=== PATIENT | female | born 1995 | race Caucasian/White ===

== ENCOUNTER 2021-02-10 09:23 | Observation (INO) | payer OTHER ==
[~2021-02-10] VITALS: Ht 162.6 cm; Wt 114.7 kg
[2021-02-10] MEDS ORDERED: CITALOPRAM HBR10 MG PO (11:13)
[2021-02-10] MEDS ORDERED: VITAMIN D21250 MCG PO (11:13)
[2021-02-10] MEDS ORDERED: CAMILA0.35 MG PO (11:13)
[2021-02-10] MEDS ORDERED: OMEPRAZOLE20 MG PO (11:13)
[2021-02-10] MEDS ORDERED: EPINEPHRIN0.3 MG/0.3 IM (11:14)
--- NOTE | 2021-02-10 12:08 | NUR ---
REPORT RECIEVED FROM ER NURSE.
--- NOTE | 2021-02-10 13:00 | NUR ---
PT ARRIVED ON FLOOR AT 1230. PT AAOX4, PT DENIES PAIN AND N/V, ABD SOUNDS PRESENT BUT ABD IS TENDER TO TOUCH RUQ, LOBES ARE CLEAR, PT VOIDED 200 SINCE ARRIVAL. WILL CONTINUE TO MONITOR.
--- NOTE | 2021-02-10 14:51 | NUR ---
PT IN ROOM. NO NEW CONCERNS NOTED AT THIS TIME.
[2021-02-10] MEDS ORDERED: BUPROPION HCL75 MG PO (15:01)
[2021-02-10] MEDS ORDERED: CRANBERRY500 M3 PO (15:04)
[2021-02-10] MEDS ORDERED: ALDACTONE100 MG PO (15:04)
[2021-02-10] MEDS ORDERED: PEPCID AC20 MG PO (15:05)
[2021-02-10] MEDS ORDERED: PROBIOTIC1 EAC1 PO (15:05)
--- NOTE | 2021-02-10 15:06 | NUR ---
MED REC COMPLETE
--- NOTE | 2021-02-10 15:30 | NUR ---
PT AND SPOUSE WORK FOR [employer]. THEY L[place] IN [place], [place] [facility] [place]GENE IS HER LIFE PARTNER. PLANS ON SURGERY TOMORROW AND DISCHARGE TO HOME FOLLOWING SURGERY.
--- NOTE | 2021-02-10 17:40 | NUR ---
SINCE ARRIVAL ON FLOOR AT 1230 PT HAD NO ISSUES WITH PAIN AND N/V. ABD IS TENDER TO TOUCH RUQ AND UPPER MIDDLE. OTHERWISE ASSESSMENTS WERE BENIGN. V/S WDL, URINE OUTPUT WDL.
--- NOTE | 2021-02-10 17:55 | NUR ---
PATIENT AWAKE IN BED, FAMILY IN ROOM. VITALS AND I&OS CHARTED. FRESH ICE WATER AND BROTH PROVIDED,CALL LIGHT IN REACH
--- NOTE | 2021-02-10 19:25 | NUR ---
SHIFT REPORT RECEIVED FROM VISHNU MATHIS. PT RESTING IN BED, FAMILY IN ROOM. IV FLUIDS INFUSING PER ORDER. PT RUQ PAIN 10/23, DEINES NEED FOR INTERVENTION. CALL LIGHT IN REACH.
--- NOTE | 2021-02-10 20:05 | NUR ---
IN TO GET VITALS, ICE WATER AND APPLE JUICE PROVIDED, NO FURTHER NEEDS AT THIS TIME
--- NOTE | 2021-02-10 22:28 | NUR ---
ASSESSMENT COMPLETED. SCHEDULED MEDS PROVIDED. RUQ/BACK PAIN 01/21, PRN TYLENOL PROVIDED. GCS 15, A&O X4. LUNGS CLEAR, HEART TONES REGULAR. ABD SOFT, TENDER IN RUQ, BOWEL TONES ACTIVE, PT STATES NORMAL. CMS INTACT. IV WNL, CDI, FLUSHED WELL, IV FLUIDS INFUSING PER ORDER. NO OTHER NEEDS AT THIS TIME. CALL LIGHT IN REACH.
--- NOTE | 2021-02-11 | NUR ---
PT RESTING IN BED, EYES CLOSED. RR EVEN, UNLABORED. IV FLUIDS INFUSING PER ORDER. CALL LIGHT IN REACH.
--- NOTE | 2021-02-11 02:35 | NUR ---
ASSESSMENT, VS AND I&O COMPLETED. PT PAIN 3/10 IN RUQ, DENIES NEED FOR INTERVENTION. LUNGS CLEAR, HEART TONES REGULAR. ABD OBESE, TENDER IN RUQ, BOWEL TONES ACTIVE, PT STATES NORMAL. CMS INTACT. IV WNL, IV FLUIDS INFUSING PER ORDER. GCS 15, A&O X4. MOUTH SWABS PROVIDED. NO OTHER NEEDS AT THIS TIME. CALL LIGHT IN REACH.
--- NOTE | 2021-02-11 04:30 | NUR ---
PT RESTING IN BED, EYES CLOSED. RR EVEN, UNLABORED. CALL LIGHT IN REACH.
--- NOTE | 2021-02-11 05:58 | NUR ---
SCHEDULED MED PROVIDED. VS AND I&O COMPLETED. NO OTHER NEEDS AT THIS TIME. CALL LIGHT IN REACH.
--- NOTE | 2021-02-11 07:11 | CONS ---
[facility] [address], [place] [address] Signed DATE OF CONSULTATION: 02/10/2021 REFERRING PHYSICIAN: CHIEF COMPLAINT: Right upper quadrant abdominal pain. HISTORY OF PRESENT ILLNESS: Juan Jose is a 25-year-old female originally from [place], [place]. 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 While in college, she was suffering with obesity and acid reflux. The omeprazole has been helping in that regard. However, she awoke earlier this morning with significant right upper quadrant abdominal pain associated with nausea and vomiting. She finally decided to come to the emergency room for evaluation. She said it has been getting progressively worse over the last several weeks. In the emergency room, she was tender in the right upper quadrant with an elevated white blood cell count. Liver function tests were all negative. Beta-hCG is negative. The COVID test is negative. Urinalysis shows some ketones. An ultrasound was performed and her gallbladder wall is a bit long at 17.1 cm. It is a little distended, but not overly hydropic. There appears to be no stones or sludge. The gallbladder wall was not thick at 3 mm. The common bile duct is unremarkable at 4 mm. There appears to be a polyp about 7 mm inside the gallbladder. She did have a positive sonographic Varela sign. Consequently, I was asked to admit her as a general surgeon on-call. In the meantime, she has received Levaquin and Flagyl along with morphine. She said she is already feeling much better now that the pain med kicked in. She is here today with her boyfriend, Jovany. PAST MEDICAL HISTORY: Polycystic ovarian syndrome, gastroesophageal reflux disease, obesity and anxiety. PAST SURGICAL HISTORY: Includes a tonsillectomy, adenoidectomy and direct laryngoscopy and a barium swallow by an ENT physician while in college. SOCIAL HISTORY: She does not smoke or drink. She has her boyfriend Gene. He has children, but she does not. She works for our local [employer] counsel[employer]. Her mother is Anita Hardin at [phone]. Pamella Posada is her primary care provider. FAMILY HISTORY: Dad had diabetes. REVIEW OF SYSTEMS: Electronically Signed By: ROHAN NAVA MD 02/11/21 0711 PATIENT NAME: JUAN JOSE MELGAR CONSULTATION DATE OF : [birth year] REPORT #: [id number] PHYSICIAN: ROHAN NAVA MD PCP: PAMELLA POSADA PA-C REPORT IS CONFIDENTIAL AND NOT TO BE RELEASED WITHOUT AUTHORIZATION [facility] [address] [place] [id number] Signed Juan Jose had 10 systems reviewed. When she was heavier, there was some concern about being prediabetic. She has lost weight and seems to be doing better in that regard. ALLERGIES: Keflex and bee stings both cause anaphylaxis. MEDICATIONS: 1. Vitamin D. 2. Norethindrone. 3. Citalopram. 4. Omeprazole. 5. Epinephrine . PHYSICAL EXAMINATION: VITAL SIGNS: Her blood pressure is 127/103, heart rate 72, respiratory rate 18, temperature is 99.0. She is 100% on room air. She is 5 feet 4 inches at 114 kg. GENERAL: Juan Jose is a 25-year-old female lying supine in her ER bed. Her boyfriend Gene is in the room. She does not appear systemically ill or toxic. She is an excellent historian. LUNGS: Clear to auscultation bilaterally. HEART: Regular rate and rhythm without murmurs. ABDOMEN: Obese, but soft. She points to the right upper quadrant as the area of tenderness. She said it is gone now after the morphine. LABORATORY DATA: Her white blood cell count is 14.5, hemoglobin is 15. Electrolytes are unremarkable. Total bilirubin 0.5, AST 14, ALT 18, alkaline phosphatase 68, albumin is 4.8, lipase 16. Beta-hCG negative. Urinalysis positive for ketones. COVID test negative. RADIOGRAPHIC STUDIES: The ultrasound shows the gallbladder a bit long at 17.1 cm. It is not overly hydropic. There appears to be a polyp of about 7 mm inside. There are no stones or sludge. The gallbladder wall is not thick at 3 mm. The common bile duct is defined at 4 mm, but she did have a positive Varela's sign. ASSESSMENT AND PLAN: Juan Jose is a 25-year-old obese female, who presents with what looks like acalculous cholecystitis and dehydration. She is very clear that it is different than her acid reflux symptoms. These tend to bother her at night when she lies supine. I reviewed the above findings with Juan Jose and her boyfriend in detail. We have discussed the location and function of the gallbladder. We have also discussed laparoscopic versus open cholecystectomy. There is already surgery going now and a is pending and so we are going to admit her overnight for hydration and antibiotics. We will reassess the lab work in the morning and probably do her surgery sometime midday tomorrow after Electronically Signed By: ROHAN NAVA MD 02/11/21 0711 PATIENT NAME: JUAN JOSE MELGAR CONSULTATION DATE OF : [birth year] REPORT #: [id number] PHYSICIAN: ROHAN NAVA MD PCP: PAMELLA POSADA PA-C REPORT IS CONFIDENTIAL AND NOT TO BE RELEASED WITHOUT AUTHORIZATION [facility] [address], [place] [address] Signed some surgery I have scheduled in the morning. She understands there is risk to surgery including, but not limited to bleeding, infection, scarring, change in contour the skin, damage to bowel, damage to main bile duct, incisional hernias and other unforeseen comorbidities. She and her boyfriend have expressed understanding and agreed with the above plan/ Rohan Nava MD ALB/MODL /[id number] cc: Copies: ~ Electronically Signed By: ROHAN NAVA MD 02/11/21 0711 PATIENT NAME: JUAN JOSE MELGAR CONSULTATION DATE OF : [birth year] REPORT #: [id number] PHYSICIAN: ROHAN NAVA MD PCP: PAMELLA POSADA PA-C REPORT IS CONFIDENTIAL AND NOT TO BE RELEASED WITHOUT AUTHORIZATION
--- NOTE | 2021-02-11 08:18 | NUR ---
PE MD NAVA NO PRE-OP EKG AND CHEST X-RAY NEEDED.
--- NOTE | 2021-02-11 09:04 | NUR ---
PT IS DOING WELL THIS MORNING. PT DENIES N/V, PT STILL HAS RUQ AND MID ABDOMINAL TENDERNESS TO TOUCH. ABD SOUNDS ARE PRESENT. PT DOES HAVE A SLIGHTLY SWOLLEN RIGHT HAND. WILL CONTINUE TO MONITOR THAT. NO OTHER ISSUES NOTED WITH THIS ASSESSMENT.
--- NOTE | 2021-02-11 12:22 | NUR ---
PT DID NEED SOME PRIN IV PAIN MEDICATION. PT IS RESTING NOW. NO NEW CONCERNS NOTED. PT READY FOR OR.
--- NOTE | 2021-02-11 14:11 | NUR ---
02/11/21 1411 Mildred Walter TO PACU AFTER ABORTED CASE.
--- NOTE | 2021-02-11 14:35 | NUR ---
PT IS COMING BACK FROM PACU. NO SX DONE DUE TO EMERGENCY SX. WILL GO TO OR 02/12/21 AT 0900.
--- NOTE | 2021-02-11 15:44 | NUR ---
PT IS SLEEPING WITH 2L O2 NC ON. O2 SATS NOW 97%. RR WDL. WILL CONTINUE TO MONITOR.
--- NOTE | 2021-02-11 17:06 | NUR ---
PT IN BATHROOM AT THIS TIME AND ABLE TO WALK INDEPTENDENTLY. PT NOW ON RA TRIAL. RR WDL, NO PAIN OR N/V. NO NEW CONCERNS NOTED AT THIS TIME.
--- NOTE | 2021-02-11 17:36 | NUR ---
PT WENT TO OR AT 0100 OR SO. NO SX WAS DONE DUE TO AN EMERGENCY SX. PT CAME BACK TO FLOOR AT 1300. PT HAD EMESIS X1 UPON ARRIVAL HERE BUT SINCE, NO N/V AND PAIN HAVE BEEN EXPRESSED BY PT. PT WAS DROWSY AND SLEEPING WITH 2L O2 NC UTNIL 1705. PT THEN HAD TO VOID. SINCE, PT HAS BEEN ON ROOM AIR AND IS FULLY AWAKE EATING DINNER IN ROOM. V/S ARE ALL WLD. NO NEW ISSUES WERE NOTED. PT WILL GO BACK TO OR ON 02/12/21 AT 0845.
--- NOTE | 2021-02-11 19:31 | NUR ---
SHIFT REPORT RECEIVED FROM WILLIAM MATHIS. PT RESTING IN BED, EYES CLOSED. RR EVEN, UNLABORED. CALL LIGHT IN REACH.
--- NOTE | 2021-02-11 22:22 | NUR ---
ASSESSMENT COMPLETED. GCS 15, A&O X4. LUNGS CLEAR,HEART TONES REGULAR. ABD SOFT, TENDER IN RUQ, BOWEL TONES ACTIVE, PT STATES NORMAL. CMS INTACT. IV WNL, CDI, FLUSHED WELL. IV FLUIDS INFUSING PER ORDER. SCHEDULED MED PROVIDED. NO OTHER NEEDS. CALL LIGHT IN REACH.
--- NOTE | 2021-02-12 00:15 | NUR ---
PT RESTING IN BED, EYES CLOSED. RR EVEN, UNLABORED. CALL LIGHT IN REACH.
--- NOTE | 2021-02-12 01:38 | NUR ---
PT RESTING IN BED, EYES CLOSED. RR EVEN, UNLABORED. CALL LIGHT IN REACH.
--- NOTE | 2021-02-12 03:34 | NUR ---
PT RESTING IN BED, EYES CLOSED. RR EVEN, UNLABORED. CALL LIGHT IN REACH.
--- NOTE | 2021-02-12 04:50 | NUR ---
ASSESSMENT, VS AND I&O COMPLETED. GCS 15, A&O X4. LUNGS CLEAR, HEART TONES REGULAR. ABD SOFT, TENDER IN RUQ, BOWEL TONES ACTIVE. CMS INTACT. IV WNL, IV FLUIDS INFUSING PER ORDER. MOUTH SWABS PROVIDED. NO OTHER NEEDS. CALL LIGHT IN REACH.
--- NOTE | 2021-02-12 06:16 | NUR ---
SCHEDULED MED PROVIDED. IV WNL. PT DENIES PAIN AT THIS TIME. CALL LIGHT IN REACH.
--- NOTE | 2021-02-12 07:13 | NUR ---
PT APPEARS TO BE SLEEPING SOUNDLY AT TIME OF SHIFT EXCHANGE, LEFT UNDISTURBED. REPORT RECEIVED.
--- NOTE | 2021-02-12 07:23 | NUR ---
PT PRE SURGICAL WIPE DOWN COMPLETE AND NEW BED LINENS IN PLACE, NO FURTHER NEEDS AT THIS TIME
--- NOTE | 2021-02-12 07:35 | NUR ---
PT AWAKE, MOTHER PRESENT IN THE ROOM. PRE-OP TEACHING REVIEWED PT VERBALIZES UNDERSTANDING DENIES QUESTIONS. AGREES SHE IS COMFORTABLE RIGHT NOW
--- NOTE | 2021-02-12 08:14 | NUR ---
DR NAVA IN TO SEE PT ALL QUESTIONS ANSWERED
--- NOTE | 2021-02-12 08:49 | NUR ---
PT TO O/R VIA STRETCHER
--- NOTE | 2021-02-12 10:48 | NUR ---
02/12/21 1048 Amanda Sandoval 1036: PT ARRIVES TO PACU ON 6L O2 VIA MASK WITH NATURAL AIRWAY. PT REACTIVE TO VERBAL STIMULI. PT ENC TO TAKE DEEP BREATHS. 1043: PT OPENS EYES AND IS ABLE TO STATE NAME. PT STATES "IT HURTS" AND IS ABLE TO RATE PAIN 6/10; SEE EMAR FOR MEDICATION ADMIN. 1047: PT PROVIDED PILLOW TO BRACE ABD FOR CDB.
--- NOTE | 2021-02-12 11:59 | NUR ---
PT BACK FROM O/R AWAKE AND C/O PAIN. ASSISTED TO BED, VITALS TAKEN AND PAIN MEDS ADMINISTERED. FRESH H20 AT BEDSIDE. MOTHER IS PRESENT IN THE ROOM. PT AGREES PAIN MED WAS EFFECTIVE AND "IS HELPING A LOT" SNACKS AT BEDSIDE. PT RESTING FOR A TIME NOTIFIED HER AFTER A GOOD REST AND PAIN IN CONTROL SHE WILL BE UP OUT OF BED. AGREES TO CALL FOR ANY NEEDS OR TO GET UP
--- NOTE | 2021-02-12 12:26 | NUR ---
PT RESTING SOUNDLY AWAKENS TO VOICE AGREES SHE IS COMFORTABLE. PULSE OX IN PLACE SATS AND HR IN NORMAL RANGE. MOTHER CONTINUES AT BEDSIDE
--- NOTE | 2021-02-12 12:54 | NUR ---
PT UP AMBULATES TO THE TOILET ABLE TO VOID WITHOUT DIFFICULTY. RETURNS TO BED EATING SNACKS AND DRINKING H20 SPEAKING WITH MOTHER. CONTINUES TO HAVE SOME PAIN BUT "NOT BAD" PERCOCET GIVEN
--- NOTE | 2021-02-12 14:08 | NUR ---
PT TOLERATES A LIGHT LUNCH. AGREES PAIN IS WELL CONTROLLED. MOTHER CONTINUES PRESENT AT BEDSIDE.
--- NOTE | 2021-02-12 15:07 | NUR ---
pt up to the toilet for the 4th time, agrees it is much easier now than at first. pt passing clear yellow urine. returns to bed scd's in place. visitor in the room. pt states she is ready to go home now
--- NOTE | 2021-02-12 15:48 | NUR ---
PT HAS BEEN ABLE TO VOID SEVERAL TIMES, PAIN IS WELL CONTROLLED, AND SHE HAS BEEN ABLT TO EAT AND DRINK WITH NO PAIN, NAUSEA, OR DISCOMFORTS. STATES SHE IS READY TO GO HOME AND PLANS TO JUST TAKE IT EASY THE REST OF THE DAY. PT VERBALIZES UNDERSTANDING OF DC INSTRUCTIONS AND WILL CALL FOR F/U APPT TOMORROW WHEN MD OFFICE IS OPEN. PT GOING HOME WITH HER BOYFRIEND AND MOTHER
--- NOTE | 2021-02-13 06:16 | OR ---
[facility] [address], [place] [address] Signed DATE OF OPERATION: 02/12/2021 SURGEON: Rohan Nava MD PREOPERATIVE DIAGNOSIS: [id number] acalculous cholecystitis. POSTOPERATIVE DIAGNOSES: 1. Xziyz-im-mgnuzfv calculous x1 cholecystitis. 2. Mildly dilated left hepatic duct versus choledochal cyst. PROCEDURE: Laparoscopic cholecystectomy with intraoperative cholangiogram. ESTIMATED BLOOD LOSS: Minimal. FINDINGS: Juan Jose indeed had a long mildly dilated gallbladder. The gallbladder wall was edematous. The color was dull. She had one 7 mm stone nursing home up the gallbladder rather than the ultrasound detected polyp. The intraoperative cholangiogram showed the common bile duct and the left hepatic duct to be a little more dilated than usual. This is in contrast to the ultrasound findings. Her gallbladder was far up inside the liver and we found what we thought was the left hepatic duct coming out and down pass the cystic duct. Of course, it always brings up the concern of a choledochal cyst. We might consider an MRCP after she heals up from the surgery to more clearly define that anatomy. INDICATIONS: Juan Jose is a 25-year-old female at 5 feet 4 inches, 114 kg. She has had trouble with right upper quadrant abdominal pain and nausea and vomiting. She finally came to the emergency room for evaluation. The white count was elevated, but the liver function tests were fine. The ultrasound showed what may be a 7 mm polyp in the fundus of the gallbladder. The gallbladder was a bit long at 17.1 cm. No gallbladder wall-thickening. No pericholecystic fluid. Common bile duct seemed to be about 4 mm. She did have a positive Varela's sign. I have been asked to admit her as the surgeon on-call for concerns of acalculous cholecystitis. She was admitted and started on Levaquin and Flagyl due to her significant allergy to Keflex. We actually had her in the operating room yesterday asleep with endotracheal tube. An emergent was called, so we stopped and we had to wake Juan Jose up in order to free our staff for the Electronically Signed By: ROHAN NAVA MD 02/13/21 0616 PATIENT NAME: JUAN JOSE MELGAR OPERATIVE REPORT DATE OF : [birth year] REPORT #: [id number] PHYSICIAN: ROHAN NAVA MD PCP: PAMELLA MARIE PA-C REPORT IS CONFIDENTIAL AND NOT TO BE RELEASED WITHOUT AUTHORIZATION [facility] [address] [place] [id number] Signed emergent . We therefore kept her overnight yesterday and then this morning rescheduled her surgery. I had called her mom and reviewed the situation. We went over again with Juan Jose this morning and along with her mother. In the meantime, I have discussed with them the location and function of the gallbladder. We have discussed laparoscopic versus open cholecystectomy. They understand the expected intraop and postop course. There is risk of surgery including, but not limited to bleeding, infection, scarring, change in contour of the skin, damage to bowel, damage to main bile duct, incisional hernias, and other unforeseen comorbidities. They had expressed understanding and wished to proceed. PROCEDURE NOTE: Juan Jose was taken down to our operating room and placed in the supine position under general endotracheal tube anesthesia. She was already on preoperative antibiotics along with subcutaneous heparin. SCDs were utilized. She was then prepped and draped in the usual sterile fashion. We placed our trocars in her usual positions under direct visualization of the camera without difficulty. We could immediately see she has a very long dilated fairly large gallbladder. We could see that its way up underneath her liver as well. The collar was dull. We could see the gallbladder wall was taking on fluid. We took pictures throughout for photodocumentation. We elevated the gallbladder in the right upper quadrant and we began our dissection of the triangle of Calot very carefully and bluntly with our [place] dissector. We freed up the cystic duct and we inserted the intraoperative cholangiocatheter. Intraoperative cholangiogram was then performed. We could see the cystic duct coming over to the main bile duct. We did not see any filling defects. The common bile duct and the left hepatic duct were bit dilated, but they tapered nicely through the ampulla of Vater and into the duodenum. We secured the cystic duct stump with 3 sequential clips. We then very carefully assessed the triangle of Calot once again. We found the cystic artery up next to the gallbladder wall and it was clipped distally and proximally and divided sharply with the scissors. We then very carefully dissected high up on the gallbladder wall and found what probably is her left hepatic duct coming up to the liver. Again, her gallbladder was way up inside the liver. Of course, we left that intact. It would be consistent with what we saw on the intraoperative cholangiogram. However, the idea of a choledochal cyst of course is raised. The gallbladder was slowly and carefully removed from the gallbladder fossa and placed into an EndoCatch bag. The right upper quadrant was irrigated and suctioned out until clear. We then used our laparoscopic suturing device to pass 0-Vicryl suture on either side of the fascia of the subxiphoid trocar site. This was tied down to close this fascia primarily. After this, the gas was allowed to escape and all the trocars were removed. We had found that she had just a tiny epigastric hernia above the umbilicus. We used that to place the Maribeth trocar. We closed that very readily with [id number] and simple 0-Vicryl sutures. Local anesthetic was then injected into all trocar sites. Each trocar site was irrigated and suctioned out until clear. The skin and dermis of each trocar site was closed with interrupted 3-0 Electronically Signed By: ROHAN NAVA MD 02/13/21 0616 PATIENT NAME: JUAN JOSE MELGAR OPERATIVE REPORT DATE OF : [birth year] REPORT #: [id number] PHYSICIAN: ROHAN NAVA MD PCP: PAMELLA MARIE PA-C REPORT IS CONFIDENTIAL AND NOT TO BE RELEASED WITHOUT AUTHORIZATION [facility] [address] [place] [id number] Signed subcuticular Monocryl sutures. We used 0.5-inch Steri-Strips on the subxiphoid trocar site as well as the 2 right subcostal trocar sites. Dry gauze and tape were then applied to all incisions. We also placed half-inch Steri-Strips on the site for intraoperative cholangiocatheter. After this, Juan Jose was awakened from her anesthesia, extubated in the OR, and taken to recovery room in stable condition. Rohan Nava MD ALB/MODL /[id number] cc: Pamella Nava MD Chart Filed Incomplete Copies: ROHAN NAVA MD CHART FILED INCOMPLETE ~ Electronically Signed By: ORHAN NAVA MD 02/13/21 0616 PATIENT NAME: JUAN JOSE MELGAR OPERATIVE REPORT DATE OF : [birth year] REPORT #: [id number] PHYSICIAN: ROHAN NAVA MD PCP: PAMELLA MARIE PA-C REPORT IS CONFIDENTIAL AND NOT TO BE RELEASED WITHOUT AUTHORIZATION
--- NOTE | 2021-02-15 14:33 | PATH ---
[facility] [address] [place], [place] [address] Signed SPECIMEN(S): A GALLBLADDER AND STONES SPECIMEN SOURCE: A. GALLBLADDER AND STONES CLINICAL HISTORY: Acute on chronic cholecystitis FINAL PATHOLOGIC DIAGNOSIS: Gallbladder and stones: - Acute and chronic calculus cholecystitis. - Focal mild mucosal necrosis. JVR:cml:C2NR MICROSCOPIC EXAMINATION: Histologic sections of all submitted blocks are examined by light microscopy. These findings, together with the gross examination, support the pathologic diagnosis. GROSS DESCRIPTION: The specimen, labeled "SH, gallbladder," is received in formalin and consists of: Specimen: Previously opened gallbladder. Dimensions: 12.5 cm in length and 4.5 cm in inner circumference. Serosa: Violaceous and smooth. Cystic Duct: Unobstructed. Calculi: One green gallstone within the container that measures 1.2 cm in greatest dimension. Mucosa: Florin-abdullahi, velvety and partially covered with yellow-abdullahi, adherent material. Wall thickness: 0.4 cm. Lymph node: No pericystic lymph nodes are grossly identified. Additional: None. Body Make Up Artist sections are submitted in cassette (A1). JS (under the direct supervision of a pathologist) The Gross Description was prepared using a voice recognition system. The report was reviewed for accuracy; however, sound-alike word errors, addition and/or deletions may occur. If there is any question about this report, please contact Client Services. PERFORMING LABORATORY: PATIENT NAME: JUAN JOSE MELGAR PATHOLOGY DATE OF : [birth year] REPORT #: [id number] PHYSICIAN: JASWINDER DALY PCP: ИРИНА MARIE PA-C REPORT IS CONFIDENTIAL AND NOT TO BE RELEASED WITHOUT AUTHORIZATION [address] [place] [address] Signed The technical component was performed by [employer], [address] [place] [address] (Camp Director: Renee Raymond MD; CLIA# [id number]). Professional interpretation was performed [place] [address]. Diagnostician: Antonio Silva MD Pathologist Electronically Signed 02/15/2021 Copies: ~ PATIENT NAME: JUAN JOSE MELGAR PATHOLOGY DATE OF : [birth year] REPORT #: [id number] PHYSICIAN: JASWINDER DALY PCP: ИРИНА MARIE PA-C REPORT IS CONFIDENTIAL AND NOT TO BE RELEASED WITHOUT AUTHORIZATION
== END 2021-02-12 15:55 | disposition home or self-care (01) ==
LOC: ED 09:23 → MS 09:24 → ED 10:58 → MS 10:58
PROVIDERS: ADMIT Colon & Rectal Surgery; ATTEND Colon & Rectal Surgery
PROC: BF03YZZ Plain Radiography of Gallbladder and Bile Ducts using Other Contrast (ICD-10-PCS; 2021-02-12)
PROC: 0FT44ZZ Resection of Gallbladder, Percutaneous Endoscopic Approach (ICD-10-PCS; principal; 2021-02-12 09:00)
DX: K80.12 Calculus of gallbladder with acute and chronic cholecystitis without obstruction (principal); E86.0 Dehydration; K43.9 Ventral hernia without obstruction or gangrene; K21.9 Gastro-esophageal reflux disease without esophagitis; E66.9 Obesity, unspecified; Z20.822 Contact with and (suspected) exposure to COVID-19; Z68.41 Body mass index [BMI] 40.0-44.9, adult
CPT/HCPCS: 00790; 74300; 76705; 80053; 81001; 83690; 83735; 84100; 84703; 85025; 96361; 96374; 96375; 99285-25; C9113; C9803; J0131; J0330; J1100; J1170; J1790; J1885; J1956; J2001; J2270; J2405; J2704; J3010; J3475; J7030; J7121; Q9967; U0003

== ENCOUNTER 2023-09-30 16:26 | Inpatient (IN) | payer OTHER ==
[~2023-09-30] VITALS: Ht 160 cm; Wt 100.2 kg
--- NOTE | ~2023-09-30 | OR ---
[facility] [address] [place], [place] [address] Draft DATE OF OPERATION: 09/30/2023 SURGEON: Anabell Villegas DO PREOPERATIVE DIAGNOSES: 1. Intrauterine at 39 weeks and 4 days gestation. 2. Non-reassuring heart tracing. 3. History of bariatric surgery. POSTOPERATIVE DIAGNOSES: 1. Intrauterine at 39 weeks and 4 days gestation. 2. Non-reassuring heart tracing. 3. History of bariatric surgery. 4. True knot of the umbilical cord. PROCEDURE PERFORMED: Primary low transverse delivery. GREENS TIER: Lori Khanna MD ANESTHESIA: Epidural. COMPLICATIONS: None. DRAINS: Lyon to gravity. EBL: 700 mL. FINDINGS: Delivery of a viable male in the LOT position via primary low transverse delivery. Clear amniotic fluid and no nuchal cord identified. True knot noted that was quite tight. Apgars of 8 and 9 and the weighed 7 pounds 3 ounces. Right extension of the hysterotomy repaired without difficulty. Normal tubes and ovaries. Small subserosal fibroid approximately 3 cm of diameter at the fundus posteriorly. PATIENT NAME: JUAN JOSE FAUSTIN OPERATIVE REPORT DATE OF : [birth year] REPORT #: [id number] PHYSICIAN: ANABELL VILLEGAS) PCP: PARRISH WOOD PA-C REPORT IS CONFIDENTIAL AND NOT TO BE RELEASED WITHOUT AUTHORIZATION [facility] [address] [place], [place] [address] Draft INDICATIONS: Ms. Faustin is a very pleasant 28-year-old female who presented at 39 weeks gestation for a routine OB visit. She was noted to be 4 cm dilated, 100% effaced, and had elevated diastolic blood pressures. She was sent to Labor and Delivery for admission for labor and further evaluation. Blood pressures were generally normal throughout the labor and she had no sustained elevated blood pressures and preeclampsia labs were normal. She became uncomfortable. An epidural was placed. She had a prolonged deceleration that improved with intrauterine resuscitation. The patient made slow change to 7 cm and developed recurrent late decelerations. The patient then developed tachycardia with recurrent lates and no cervical change was noted. Decision was made to offer primary low-transverse delivery per [facility]'s recommendations for management of category 2 tracing. Risks, benefits, and alternatives discussed in detail with the patient. The patient understands and wished to proceed with the procedure. TECHNIQUE: The patient was taken to the operating room where a time-out was performed to confirm the correct patient, correct procedure. Epidural was bolused and a Lyon catheter had previously been placed. The patient was prepped and draped in the supine position with a bump under the right hip. The patient received clindamycin 900 mg, gentamicin 5 mg/kg, and azithromycin 500 mg preoperatively per SCIP protocol. No heparin was indicated. Once abdomen was noted to be hemostatic, a Pfannenstiel skin incision was made approximately 3 cm above the pubic symphysis. Incision was carried down to the fascia, which was nicked in the midline and fascial incision was extended bilaterally using sharp dissection. The fascia was grasped with Chad's, elevated, and the underlying rectus divided off bluntly sharply. Rectus was divided in the midline without difficulty and the peritoneum was entered bluntly. Peritoneal incision was extended bilaterally using blunt dissection. An El self retractor was placed. Lower uterine segment was identified and hysterotomy was performed using surgical scalpel. Hysterotomy was extended bilaterally using blunt dissection and clear fluid was noted. was noted to be in the LOT position and was easily delivered through the hysterotomy with assistance of fundal pressure. Clear fluid and no nuchal cord was identified. A very tight true knot was noted in the umbilical cord. Cord was doubly clamped, cut, and handed to the waiting pediatric team for further care. Cord gases were obtained and cord blood was obtained for routine analysis. The placenta was expressed, intact with a centrally inserted three-vessel cord. The uterus was cleared of any remaining products of conception or clot. Hysterotomy was then cleared in two layers of 0 Monocryl. The first being a running locked layer and the second being a running imbricated stitch in the vertical manner. Then extension of the hysterotomy was noted on the right side and this was repaired without difficulty. Small amount of oozing was noted in the hysterotomy extension repair and this was made hemostatic with a [id number] suture. The pelvis was irrigated and found to be hemostatic and El PATIENT NAME: JUAN JOSE FAUSTIN OPERATIVE REPORT DATE OF : [birth year] REPORT #: [id number] PHYSICIAN: ANABELL VILLEGAS (ESMER) DO PCP: PARRISH WOOD PA-C REPORT IS CONFIDENTIAL AND NOT TO BE RELEASED WITHOUT AUTHORIZATION [facility] [address] [place] [id number] Draft retractor was removed. Peritoneum was reapproximated using 2-0 Vicryl in a running nonlocked manner. Rectus was irrigated made hemostatic with judicious use of Bovie electrocautery. The rectus was then divided in three loose interrupted sutures of 0 Vicryl. Fascia was reapproximated using 0 Vicryl in a running locked manner. Subcu was made hemostatic with judicious use of Bovie electrocautery. 3-0 Vicryl was used to close the subcu and the skin was reapproximated with surgical jose daniel. The uterus was Crede'd for scant amount of blood. The patient was taken to PACU in good, stable condition. Sponge, needle, and instrument counts correct x2 at the end of the procedure. Dr. Khanna was present and participated in all portions of procedure. DO ALDO Hess/ALVARO /[id number] Copies: ~ PATIENT NAME: JUAN JOSE FAUSTIN OPERATIVE REPORT DATE OF : [birth year] REPORT #: [id number] PHYSICIAN: ANABELL VILLEGAS DO (JD) PCP: PARRISH WOOD PA-C REPORT IS CONFIDENTIAL AND NOT TO BE RELEASED WITHOUT AUTHORIZATION
[~2023-09-30 16:26] MED LIST: ALDACTONE100 MG PO; BUPROPION HCL75 MG PO; CAMILA0.35 MG PO; CITALOPRAM HBR10 MG PO; CRANBERRY500 M3 PO; EPINEPHRIN0.3 MG/0.3 IM; OMEPRAZOLE20 MG PO; PEPCID AC20 MG PO; PROBIOTIC1 EAC1 PO; VITAMIN D21250 MCG PO
[2023-09-30 16:53] LABS: CREATININE, RANDOM URINE 103.02 mg/dL (NOT ESTABLISHED); PROTEIN, RANDOM URINE 22 mg/dL (NOT ESTABLISHED)
[2023-09-30 17:02] LABS: HEMATOCRIT 35.4 % (35.0-50.0); HEMOGLOBIN 11.4 g/dL (12.0-18.0); MCH 30.1 (27-36); MCHC 32.2 g/dl (30-36); MCV 93.5 fl (81-99); RBC 3.78 M/ul (4.3-5.7); RDW 13.7 (10.5-15.0)
[2023-09-30 17:20] LABS: ALBUMIN/GLOBULIN RATIO 0.71 (1.1-2.4); ANION GAP 17.7 (7-21); BILIRUBIN, TOTAL 0.5 ng/dL (0.2-1.0); BUN/CREATININE RATIO 10.81 (6.0-28.6); CALCIUM 9.1 mg/dL (8.5-10.1); CREATININE, SERUM 0.74 mg/dL (0.55-1.02); POTASSIUM 3.7 mmol/L (3.5-5.1); PROTEIN, TOTAL 7.2 g/dL (6.4-8.2)
[2023-09-30 17:28] VITALS: BP 155/88
[2023-09-30 17:29] VITALS: BP 155/88
[2023-09-30 17:30] LABS: AMPHETAMINES, URINE NEGATIVE (NEGATIVE); BARBITURATES, URINE NEGATIVE (NEGATIVE); BENZODIAZEPINE, URINE NEGATIVE (NEGATIVE); BUPRENORPHINE, URINE NEGATIVE (NEGATIVE); CANNABINOID, URINE NEGATIVE (NEGATIVE); COCAINE, URINE NEGATIVE (NEGATIVE); ECSTASY, URINE NEGATIVE (NEGATIVE); FENTANYL, URINE NEGATIVE (NEGATIVE); METHADONE, URINE NEGATIVE (NEGATIVE); OPIATES, URINE NEGATIVE (NEGATIVE); OXYCODONE, URINE NEGATIVE (NEGATIVE); PHENCYCLIDINE, URINE NEGATIVE (NEGATIVE)
[2023-09-30 17:40] LABS: ABO O; ANTIBODY SCREEN NEGATIVE; RH POSITIVE
--- NOTE | 2023-09-30 18:21 | PR ---
[facility] [address] [place], [place] [address] Signed Progress Notes IP Datetime Report Generated by CPN: 09/30/2023 18:21 PROGRESS NOTES: [id number] Impression: Normal Progression of Labor; Reassuring Heart Rate Procedures: Artificial ROM; Intrauterine Pressure Catheter; Scalp Electrode; Sterile Vag Exam Plan: Continue Present Management Informed Consent Obtain: Vaginal Delivery VITAL SIGNS: [id number] Vital Signs: Reviewed VS Notable Details: No sustained elevated BPs; no OWENS, RUQ pain, visual changes EXAM: [id number] Dilatation: 6.0 Station: -2 Contractions: Difficult to monitor w/ external tocometer MEMBRANES: [id number] Comments: Called to pt's room for prolonged deceleration. Pt w/ symptomatic hypotension w/ systolic BPs in the 90's, lightheadedness, and N/V as well as prolonged deceleration. IVF and ephedrine ordered per anesthesia. AROM performed with placement of IUPC and FSE after obtaining informed consent. Large amount of clear fluid noted. FHT reassuring. Elevated BP noted w/ administration of ephedrine. Mother and baby now improved and will continue watching closely. FETUS A: [id number] FHR Baseline: 150 Variability: Moderate 6-25bpm Accelerations: 15X15 Decelerations: Prolonged FHR Category: Category II Presentation: Vertex Comments on Fetus A: No evidence of metabolic acidosis FETUS B: [id number] Signing Physician: Anabell Villegas DO Copies: ~ *Electronically Signed* 09/30/231820 ANABELL VILLEGAS (ESMER) DO PATIENT NAME: JUAN JOSE OLMSTEAD PROGRESS NOTE DATE OF : [birth year] PHYSICIAN: ANABELL VILLEGAS (JD) DO RPT #: [id number] REPORT IS CONFIDENTIAL AND NOT TO BE RELEASED WITHOUT AUTHORIZATION
--- NOTE | 2023-09-30 20:04 | PR ---
[facility] [address] [place], [place] [address] Signed Progress Notes IP Datetime Report Generated by CPN: 09/30/2023 20:04 PROGRESS NOTES: [id number] Impression: Normal Progression of Labor; Reassuring Heart Rate Procedures: Sterile Vag Exam Plan: Continue Present Management; Anticipate Vaginal Delivery Informed Consent Obtain: Vaginal Delivery VITAL SIGNS: [id number] Vital Signs: Reviewed VS Notable Details: No sustained elevated BPs; no OWENS, RUQ pain, visual changes EXAM: [id number] Dilatation: 7.0 Effacement: 100 Station: -2 Contractions: q 2 min MEMBRANES: [id number] Comments: Pt seen and examined. Doing well. Comfortable w/ epidural. Mild tachycardia; afebrile. Will monitor. All questions answered. FETUS A: [id number] FHR Baseline: 150 Variability: Moderate 6-25bpm Accelerations: 15X15 Decelerations: None FHR Category: Category I Presentation: Vertex Comments on Fetus A: No evidence of metabolic acidosis FETUS B: [id number] Signing Physician: Anabell Villegas DO Copies: ~ *Electronically Signed* 09/30/23 ANABELL TINOCO (ESMER) DO PATIENT NAME: JUAN JOSE OLMSTEAD PROGRESS NOTE DATE OF : [birth year] PHYSICIAN: ANABELL VILLEGAS (JD) DO RPT #: [id number] REPORT IS CONFIDENTIAL AND NOT TO BE RELEASED WITHOUT AUTHORIZATION
--- NOTE | 2023-09-30 21:45 | PR ---
[facility] [address] [place], [place] [address] Signed Progress Notes IP Datetime Report Generated by CPN: 09/30/2023 21:45 PROGRESS NOTES: [id number] Impression: Normal Progression of Labor; Reassuring Heart Rate Procedures: Intrauterine Pressure Catheter; Sterile Vag Exam Plan: Augmentation Informed Consent Obtain: Vaginal Delivery Other Informed Consents: Augmentation w/ pitocin VITAL SIGNS: [id number] Vital Signs: Reviewed VS Notable Details: No sustained elevated BPs; no OWENS, RUQ pain, visual changes EXAM: [id number] Dilatation: 7.0 Effacement: 100 Station: -2 Contractions: q 3-4 min MEMBRANES: [id number] Comments: Pt seen and examined. Doing well. Comfortable w/ contractions. No cervical change since last check FHT reassuring. Discussed placement of IUPC and pt agrees. IUPC placed. Will monitor adequacy of contractions and consider augmentation w/ pitocin if indicated. All questions answered FETUS A: [id number] FHR Baseline: 150 Variability: Moderate 6-25bpm Accelerations: 15X15 Decelerations: None FHR Category: Category I Presentation: Vertex Comments on Fetus A: No evidence of metabolic acidosis FETUS B: [id number] Signing Physician: Anabell Villegas DO Copies: ~ *Electronically Signed* 09/30/23 1734 ANABELL VILLEGAS (ESMER) DO PATIENT NAME: JUAN JOSE OLMSTEAD PROGRESS NOTE DATE OF : [birth year] PHYSICIAN: ANABELL VILLEGAS (JD) DO RPT #: [id number] REPORT IS CONFIDENTIAL AND NOT TO BE RELEASED WITHOUT AUTHORIZATION
--- NOTE | 2023-09-30 22:29 | PR ---
[facility] [address] [place], [place] [address] Signed Progress Notes IP Datetime Report Generated by CPN: 09/30/2023 22:29 PROGRESS NOTES: [id number] Impression: Normal Progression of Labor; Reassuring Heart Rate Other Impressions: Slow progression, inadequate CTXs, Cat 2 tracing Procedures: Intrauterine Pressure Catheter; Sterile Vag Exam Plan: Augmentation Other Plans: Intrauterine rescussitation Informed Consent Obtain: Vaginal Delivery Other Informed Consents: Augmentation w/ pitocin VITAL SIGNS: [id number] Vital Signs: Reviewed VS Notable Details: No sustained elevated BPs; no OWENS, RUQ pain, visual changes EXAM: [id number] Dilatation: 7.0 Effacement: 100 Station: -2 Contractions: q 3 min MEMBRANES: [id number] Comments: Pt seen and evaluated. Recurrent decelerations, minimal variability, and tachycardia noted. Afebrile. Reviewed somewhat soft pressures and will add ephedrine 10mg IV now to intrauterine rescussitation. Reviewed possible if FHT not improved. Reviewed intrauterine rescussitative efforts incluiding IV fluid bolus and maternal repositioning. All questions answered FETUS A: [id number] FHR Baseline: 150 Variability: Minimal - >Undetectable to <=5bpm Accelerations: 15X15 Decelerations: Late FHR Category: Category II Presentation: Vertex Comments on Fetus A: No evidence of metabolic acidosis FETUS B: [id number] Signing Physician: Anabell Villegas DO *Electronically Signed* 09/30/23 2695 ANABELL VILLEGAS (ESMER) DO PATIENT NAME: JUAN JOSE OLMSTEAD PROGRESS NOTE DATE OF : [birth year] PHYSICIAN: ANABELL VILLEGAS (JD) DO RPT #: [id number] REPORT IS CONFIDENTIAL AND NOT TO BE RELEASED WITHOUT AUTHORIZATION
--- NOTE | 2023-09-30 23:11 | PR ---
[facility] [address] [place], [place] [address] Signed Progress Notes IP Datetime Report Generated by CHESLEA: 09/30/2023 23:11 PROGRESS NOTES: [id number] Impression: Arrest of Dilatation/Descent; Non-reassuring Heart Rate Other Impressions: Slow progression, inadequate CTXs, Cat 2 tracing Procedures: Sterile Vag Exam Plan: Deliver- Section Other Plans: Intrauterine rescussitation Informed Consent Obtain: Section Delivery Other Informed Consents: Augmentation w/ pitocin VITAL SIGNS: [id number] Vital Signs: Reviewed VS Notable Details: No sustained elevated BPs; no OWENS, RUQ pain, visual changes EXAM: [id number] Dilatation: 7.0 Effacement: 100 Station: -2 Contractions: q 3-4 min MEMBRANES: [id number] Comments: Pt seen and examined. Sustained tachycardia (afebrile) w/ recurrent late decelerations noted despite intrauterine rescussitative efforts. Recommended primary low transverse delivery. Review FHT and contractions. Discussed primary C/S in detail including risks / benefits / alternatives. All questions answered to the best of my ability and to pt's satisfaction. Pt and understand and agree to plan of primary C/S. Consents signed, OR crew notified and en route, and orders placed. FETUS A: [id number] FHR Baseline: 150 Variability: Minimal - >Undetectable to <=5bpm Accelerations: 15X15 Decelerations: Late FHR Category: Category II Presentation: Vertex Comments on Fetus A: No evidence of metabolic acidosis FETUS B: [id number] Signing Physician: Anabell Villegas DO *Electronically Signed* 09/30/23 2311 ANABELL VILLEGAS) DO PATIENT NAME: JUAN JOSE OLMSTEAD PROGRESS NOTE DATE OF : [birth year] PHYSICIAN: ANABELL VILLEGAS DO (JD) RPT #: [id number] REPORT IS CONFIDENTIAL AND NOT TO BE RELEASED WITHOUT AUTHORIZATION
[2023-10-01 00:58] VITALS: BP 134/75
--- NOTE | 2023-10-01 01:23 | NUR ---
10/01/23 0123 Alicia Mijares 0039- PT BROUGHT TO ROOM 104 IN [facility] ON BED, SUPINE POSITION. LR WITH 30 UNITS OF PITOCIN INFUSING TO RFA 18G IV. PT IS AWAKE, ANSWERS QUESTIONS APPROPRIATE BUT DROWSY. PT REPORTS TINGLING IN FEET AND CAN MOVE TOES. DENIES NAUSEA AT THIS TIME. 0050- PT HEAD ELEVATED TO SEMI BENITES, BABY AT BREAST. PT REPORTS NO CHANGE IN PAIN, DENIES NAUSEA. 0110- REPORT TO DANNY MATHIS, PT ALERT AND ORIENTED. BABY REMAINS AT BREAST. LR WITH 30 UNITS OF PITOCIN CONTINUES TO INFUSE. CARE OF PT TURNED OVER AT THIS TIME.
--- NOTE | 2023-10-01 11:37 | NUR ---
[facility] ROUNDS. 15 MINUTES. SEVERAL VISITORS IN ROOM. PT AND FAMILY EXPRESSED RUFINO AND SATISFACTION. GRANDMOTHER EXPRESSED HAPPINESS. NORMALIZED PT EXPERIENCE. PROVIDED SILENT PRAYER.
--- NOTE | 2023-10-01 18:13 | PR ---
[facility] [address] [facility] [place], [place] [address] Signed PP Progress Notes Datetime Report Generated by CPN: 10/01/2023 18:13 SUBJECTIVE: [id number] Pain: Within Normal Limits Nausea/Vomiting: Denies Flatus: Yes Bowel Movement: No Vital Signs: [id number] Vital Signs: Reviewed; Within Normal Limits Cardiovascular: Normal Respiratory: Normal Abdomen/Uterus: Normal Lochia: Normal CVA Tenderness: Normal Extremities: Normal Incision: Normal Progress: Normal Exam Comments: Fundus firm U-2 nontender Incision bandaged IMPRESSION/PLAN/PROCEDURES: [id number] Impression: Normal Progression Plan: Continue Present Management Progress Notes: Pt seen and examined. Doing well. No concerns. Pain and lochia minimal. . Would like to continue home buspar and wellbutrin. Signing Physician: Anabell Villegas DO Copies: ~ *Electronically Signed* 10/01/23 181 ANABELL VILLEGAS (ESMER) DO PATIENT NAME: JUAN JOSE OLMSTEAD PROGRESS NOTE DATE OF : [birth year] PHYSICIAN: ANABELL VILLEGAS (ESMER) DO RPT #: [id number] REPORT IS CONFIDENTIAL AND NOT TO BE RELEASED WITHOUT AUTHORIZATION
[2023-10-02 05:37] LABS: HEMATOCRIT 25.3 % (35.0-50.0); HEMOGLOBIN 8.4 g/dL (12.0-18.0); MCH 31.1 (27-36); MCHC 33.3 g/dl (30-36); MCV 93.6 fl (81-99); RBC 2.7 M/ul (4.3-5.7); RDW 13.8 (10.5-15.0)
--- NOTE | 2023-10-02 07:38 | PR ---
[facility] [address] [facility] [place], [place] [address] Signed PP Progress Notes Datetime Report Generated by CPN: 10/02/2023 07:38 SUBJECTIVE: [id number] Pain: Within Normal Limits Nausea/Vomiting: Denies Flatus: Yes Bowel Movement: No Vital Signs: [id number] Vital Signs: Reviewed; Within Normal Limits Cardiovascular: Normal Respiratory: Normal Abdomen/Uterus: Normal Lochia: Normal CVA Tenderness: Normal Extremities: Normal Incision: Normal Progress: Normal Exam Comments: Fundus firm U-2 nontender. Incision bandaged and dry IMPRESSION/PLAN/PROCEDURES: [id number] Impression: Normal Progression Plan: Continue Present Management; Consult Progress Notes: Pt seen and examined. Doing well. Ambulating and voiding. Nausea and some vomiting with regular diet but is feeling better. No fevers/chills or other concerns. Working with today. Anticipate d/c home tomorrow Signing Physician: Anabell Villegas DO Copies: ~ *Electronically Signed* 10/02/23 0738 ANABELL VILLEGAS (ESMER) DO PATIENT NAME: JUAN JOSE OLMSTEAD PROGRESS NOTE DATE OF : [birth year] PHYSICIAN: ANABELL VILLEGAS) DO RPT #: [id number] REPORT IS CONFIDENTIAL AND NOT TO BE RELEASED WITHOUT AUTHORIZATION
--- NOTE | 2023-10-03 13:09 | PR ---
[facility] [address] [facility] [place], [place] [address] Signed PP Progress Notes Datetime Report Generated by CPN: 10/03/2023 13:09 SUBJECTIVE: [id number] Pain: Within Normal Limits Nausea/Vomiting: Denies Flatus: Yes Bowel Movement: No Vital Signs: [id number] Vital Signs: Reviewed; Within Normal Limits Cardiovascular: Normal Respiratory: Normal Abdomen/Uterus: Normal Lochia: Normal Vulva/Perineum: Not Done Breasts: Not Done CVA Tenderness: Normal Extremities: Normal Incision: Normal Progress: Normal Exam Comments: Fundus firm U-2 nontender incision healing well IMPRESSION/PLAN/PROCEDURES: [id number] Impression: Normal Progression Plan: Discharge Progress Notes: Pt seen and examined. Doing well. Ambulating, voiding, and tolerating full diet. Pain and lochia minimal. admitted to nursery last night w/ hypoglycemia. [facility]. Discussed d/c instructions. Partner s/p vasectomy for tubal Signing Physician: Anabell Villegas DO Copies: ~ *Electronically Signed* 10/03/23 7194 ANABELL VILLEGAS (ESMER) DO PATIENT NAME: MARKER,JUAN JOSE SERGEY PROGRESS NOTE DATE OF : [birth year] PHYSICIAN: ANABELL VILLEGAS) DO RPT #: [id number] REPORT IS CONFIDENTIAL AND NOT TO BE RELEASED WITHOUT AUTHORIZATION
== END 2023-10-03 14:00 | disposition home or self-care (01) | DRG 788 ==
LOC: FBC 16:26
PROVIDERS: ADMIT Obstetrics & Gynecology; ATTEND Obstetrics & Gynecology
PROC: 10D00Z1 Extraction of Products of Conception, Low, Open Approach (ICD-10-PCS; principal; 2023-09-30)
PROC: 4A033R1 Measurement of Arterial Saturation, Peripheral, Percutaneous Approach (ICD-10-PCS; 2023-09-30)
PROC: 10H07YZ Insertion of Other Device into Products of Conception, Via Natural or Artificial Opening (ICD-10-PCS; 2023-09-30)
DX: O76 Abnormality in fetal heart rate and rhythm complicating labor and delivery (principal); O69.2XX0 Labor and delivery complicated by other cord entanglement, with compression, not applicable or unspecified; O26.53 Maternal hypotension syndrome, third trimester; O62.1 Secondary uterine inertia; Z3A.39 39 weeks gestation of pregnancy; Z37.0 Single live birth; Z98.84 Bariatric surgery status
CPT/HCPCS: 01961; 36415; 80053; 80307; 82565; 82570; 82803; 83615; 84156; 84550; 85027; 86850; 86900; 86901; A9270; J0456; J1580; J1650; J1790; J1885; J2001; J2274; J2405; J2590; J2795; J3490; J7121